=== PATIENT | male | born 1985 ===

== ENCOUNTER 2017-08-10 22:12 | Emergency (ER) | payer SELFPAY ==
[2017-08-10 22:23] VITALS: BP 148/78; PULSE 94; RESP 18; O2SAT 100
--- NOTE | 2017-08-10 22:39 | ED PDOC ---
HPI: Wound Care - HPI Time Seen by Provider: 08/10/17 22:37 Chief Complaint (Nursing): Abnormal Skin Integrity Chief Complaint (Provider): skin laceration History Per: Patient Exam Limitations: no limitations Additional Complaint(s): 32yo M in ED for eval laceration to left 3rd digit sustained today after cutting vegetables. tetanus is uptodate. no active bleeding. no dec ROM, no numbness or tngling. Past Medical History Reviewed: Historical Data, Nursing Documentation, Vital Signs Vital Signs: Last Vital Signs Temp Pulse 94 H 08/10/17 22:19 Resp 18 08/10/17 22:19 BP 148/78 08/10/17 22:19 Pulse Ox 100 08/10/17 22:19 - Medical History PMH: No Chronic Diseases - Family History Family History: States: No Known Family Hx - Allergies Allergies/Adverse Reactions: Allergies Allergy/AdvReac Type Severity Reaction Status Date / Time No Known Allergies Allergy Verified 08/10/17 22:20 Review of Systems ROS Statement: Except As Marked, All Systems Reviewed And Found Negative Musculoskeletal: Positive for: Hand Pain Physical Exam - Reviewed Nursing Documentation Reviewed: Yes Vital Signs Reviewed: Yes - Physical Exam Appears: Positive for: Well, Non-toxic, No Acute Distress Skin: Positive for: Normal Color, Warm, DRY Cardiovascular/Chest: Positive for: Regular Rate, Rhythm Respiratory: Positive for: CNT, Normal Breath Sounds Extremity: Positive for: Other (left hand: 3rd digit- middle phalanx superficial lacerationno active bleeidng no swelling. ) Neurologic/Psych: Positive for: Alert, Oriented - ECG O2 Sat by Pulse Oximetry: 100 Medical Decision Making Medical Decision Making: wound evaluated. sutures not indicated at this time. will place dermabond and place in a metal splint. instructed not to wet wound and keep in splint for at least 5 days. pt understand and agrees with plan. Disposition - Clinical Impression Clinical Impression: Laceration - Patient ED Disposition Is Patient to be Admitted: No Counseled Patient/Family Regarding: Diagnosis, Need For Followup - Disposition Disposition: Routine/Home Disposition Time: 22:41 Condition: STABLE Instructions: Skin Adhesive Care (ED), Finger Laceration (ED) Print Language: PERSIAN
== END 2017-08-10 23:01 | disposition home or self-care (01) ==
LOC: H.ER 22:12
DX: S61.213A Laceration without foreign body of left middle finger without damage to nail, initial encounter (principal); W45.8XXA Other foreign body or object entering through skin, initial encounter; Y93.G1 Activity, food preparation and clean up